=== PATIENT | female | born 1950 | race African-American/Black ===

== ENCOUNTER → 2017-08-17 | Outpatient (CLI) | payer MEDICARE ==
[~2017-08-17] MED LIST: ASPI-1159 PO; FAMO-134 PO; GABA-290 PO; NORT50CA PO; ROSU5TAB PO; ZOLP10TA6 PO
== END | disposition home or self-care (01) ==
LOC: MAMMO 07:36
PROVIDERS: ATTEND Specialist
DX: Z12.31 Encounter for screening mammogram for malignant neoplasm of breast (principal); R92.1 Mammographic calcification found on diagnostic imaging of breast
CPT/HCPCS: 77067